=== PATIENT | female | born 1975 | race American Indian/Alaskan Native ===

== ENCOUNTER 2020-04-25 09:33 | Emergency (ER) | payer OTHER ==
--- NOTE | 2020-04-25 11:04 | Emergency Department Report ---
Blank Doc - Documentation Documentation: 45-year-old femle that presents with fatigue, decreased thrist and urinariation. Also has vaginal cyst. Denies any HX of diabetes. This initial assessment/diagnostic orders/clinical plan/treatment(s) is/are subject to change based on patient's health status, clinical progression and re- assessment by fellow clinical providers in the ED. Further treatment and workup at subsequent clinical providers discretion. Patient/guardians urged not to elope from the ED as their condition may be serious if not clinically assessed and managed. Initial orders include: 1- Patient sent to [facility] for further evaluation and treatment 2- labs 3- UA 4- pelvic exam
[2020-04-25 13:22] LABS: Hematocrit 51.9 % (30.3-42.9); Mean Corpuscular HGB Conc 33 % (30-34); Mean Corpuscular Volume 95 fl (79-97); Red Blood Count 5.44 M/mm3 (3.65-5.03); Red Cell Distribution Width 13.7 % (13.2-15.2)
[2020-04-25 14:38] LABS: Bilirubin,Urine NEG (Negative); Blood,Urine NEG (Negative); Color,Urine Straw (Yellow); Protein,Urine <15 mg/dL mg/dL (Negative); Urobilinogen,Urine < 2.0 mg/dL (<2.0); WBC,Urine < 1.0 /HPF (0.0-6.0)
[2020-04-25 14:54] LABS: Alanine Aminotransferase 32 units/L (7-56); Albumin 4.4 g/dL (3.9-5); BUN/Creatinine Ratio 14; Blood Urea Nitrogen 10 mg/dL (7-17); Calcium 9.9 mg/dL (8.4-10.2); Hemolysis Index 14
[2020-04-25] MEDS ORDERED: HYDROcodone/ACETAMINOPHEN 5-325 MG TAB PO ONE (14:58)
[2020-04-25] MEDS ORDERED: LIDOCAINE (1%) 10 MG/1 ML VIAL 20 ML MDV INFILTRATI ONE (14:58)
[2020-04-25] MEDS ORDERED: INSULIN REGULAR, HUMAN 100 UNITS/1 ML IV ONE (15:07)
[2020-04-25] MEDS ORDERED: SODIUM CHLORIDE 0.9% 1000 ML 1,000 ML IV ONE (15:07)
--- NOTE | 2020-04-25 15:25 | Emergency Department Report ---
ED General Adult HPI - General Chief complaint: Urogenital-Female Stated complaint: WT LOSS,FREQ URINATION/THIRTSTY Time Seen by Provider: 04/25/20 11:05 Source: patient Mode of arrival: Ambulatory Limitations: No Limitations - History of Present Illness Initial comments: 45-year-old female presents to ED with 2-week history of generalized weakness, increased urination, increased thirst. Patient also reports a vaginal cyst that has been present for approximately 1 week. Patient has no known medical problems. -: week(s) (2) Severity scale (0 -10): 6 Improves with: none Worsens with: none Associated Symptoms: denies: cough, fever/chills, nausea/vomiting, shortness of breath - Related Data Previous Rx's Medication Instructions Recorded Last Taken Type Cyclobenzaprine [Flexeril] 10 mg PO QHS PRN #10 tablet 09/04/18 Unknown Rx Ibuprofen [Motrin] 600 mg PO Q8H PRN #20 tablet 09/04/18 Unknown Rx Naproxen [Naprosyn] 500 mg PO BID #20 tablet 04/25/20 Unknown Rx Sulfamethoxazole/Trimethoprim 1 each PO BID 7 Days #14 tablet 04/25/20 Unknown Rx [Bactrim DS TAB] cephALEXin [Keflex] 500 mg PO Q12HR 7 Days #14 cap 04/25/20 Unknown Rx metFORMIN [Glucophage] 500 mg PO BID #60 tablet 04/25/20 Unknown Rx traMADoL [Ultram] 50 mg PO Q6HR PRN #7 tablet 04/25/20 Unknown Rx Allergies Allergy/AdvReac Type Severity Reaction Status Date / Time No Known Allergies Allergy Unverified 09/04/18 10:28 ED Review of Systems ROS: Stated complaint: WT LOSS,FREQ URINATION/THIRTSTY Other details as noted in HPI Comment: All other systems reviewed and negative Constitutional: denies: chills, fever Respiratory: denies: shortness of breath Endocrine: increased thirst, increased urine, unexplained weight loss Gastrointestinal: denies: nausea, vomiting Genitourinary: other (Reports vaginal cyst) ED Past Medical Hx - Past Medical History Previous Medical History?: Yes Hx Hypertension: Yes (02/2020) Additional medical history: endometerosis. anemia - Surgical History Past Surgical History?: No Additional Surgical History: . Uterine Fibroid Embolization - Social History Smoking Status: Never Smoker Substance Use Type: None - Medications Home Medications: Home Medications Medication Instructions Recorded Confirmed Last Taken Type Cyclobenzaprine [Flexeril] 10 mg PO QHS PRN #10 tablet 09/04/18 Unknown Rx Ibuprofen [Motrin] 600 mg PO Q8H PRN #20 tablet 09/04/18 Unknown Rx Naproxen [Naprosyn] 500 mg PO BID #20 tablet 04/25/20 Unknown Rx Sulfamethoxazole/Trimethoprim 1 each PO BID 7 Days #14 tablet 04/25/20 Unknown Rx [Bactrim DS TAB] cephALEXin [Keflex] 500 mg PO Q12HR 7 Days #14 cap 04/25/20 Unknown Rx metFORMIN [Glucophage] 500 mg PO BID #60 tablet 04/25/20 Unknown Rx traMADoL [Ultram] 50 mg PO Q6HR PRN #7 tablet 04/25/20 Unknown Rx ED Physical Exam - General Limitations: No Limitations General appearance: alert, in no apparent distress - Head Head exam: Present: atraumatic, normocephalic - Eye Eye exam: Present: normal appearance - ENT ENT exam: Present: mucous membranes moist - Neck Neck exam: Present: normal inspection - Respiratory Respiratory exam: Present: normal lung sounds bilaterally. Absent: respiratory distress - Cardiovascular Cardiovascular Exam: Present: regular rate, normal rhythm - GI/Abdominal GI/Abdominal exam: Present: soft. Absent: distended, tenderness - External exam: Present: other (Small abscess located near inferior left labia) - Extremities Exam Extremities exam: Present: normal inspection - Neurological Exam Neurological exam: Present: alert, oriented X3 - Psychiatric Psychiatric exam: Present: normal affect, normal mood - Skin Skin exam: Present: warm, dry, intact, normal color ED Course Vital Signs 04/25/20 04/25/20 10:11 14:47 Pulse Rate 105 H 93 H Respiratory 16 16 Rate Blood Pressure 120/81 118/74 [Right] O2 Sat by Pulse 98 99 Oximetry - I & D Vagina Type of Procedure: Simple Blade Size: 11 I & D Procedure: betadine prep, sterile drapes applied, gauze wick placed ED Medical Decision Making - Lab Data Result diagrams: 04/25/20 12:27 04/25/20 17:45 - Medical Decision Making 45-year-old female with new-onset diabetes. Initial glucose 454 with a bicarb of 19 and anion gap of 25. Patient given IV fluids and 6 units of insulin. Repeat BMP showed improvement in glucose, now 220, and anion gap, now 19. Andre castaneda also has Bartholin's cyst that was I&D'd. Patient will be given a prescription for metformin, Bactrim, Keflex. Patient advised to return in 48 hours for wound check. Patient also given outpatient follow-up with primary care and gynecology. Critical care attestation.: If time is entered above; I have spent that time in minutes in the direct care of this critically ill patient, excluding procedure time. ED Disposition Clinical Impression: Diabetes mellitus, new onset, Bartholin cyst Disposition: TO HOME OR SELFCARE Is pt being admited?: No Condition: Stable Instructions: Diabetes Mellitus Type 2 in Adults (ED), Bartholin Cyst (ED), Incision and Drainage (ED) Additional Instructions: Return to ED in 48 hrs for removal of gauze and wound check. Prescriptions: Sulfamethoxazole/Trimethoprim [Bactrim DS TAB] 1 each PO BID 7 Days #14 tablet metFORMIN [Glucophage] 500 mg PO BID #60 tablet cephALEXin [Keflex] 500 mg PO Q12HR 7 Days #14 cap Naproxen [Naprosyn] 500 mg PO BID #20 tablet traMADoL [Ultram] 50 mg PO Q6HR PRN #7 tablet PRN Reason: Pain Referrals: SHANI LANDAVERDEBIRD IN [facility] MD BARB [Primary Care Provider] - 3-5 Days PHI SILVA MD [Staff Physician] - 3-5 Days Time of Disposition: 19:15
[2020-04-25 19:03] LABS: BUN/Creatinine Ratio 13; Blood Urea Nitrogen 8 mg/dL (7-17); Calcium 8.8 mg/dL (8.4-10.2); Hemolysis Index 5
[2020-04-25 19:31] VITALS: BP 127/90
[2020-04-25 20:00] LABS: Basophils % (Manual) 0 % (0.0-1.8); Eosinophils % (Manual) 0 % (0.0-4.3); Platelet Estimate Consistent w Auto; RBC Morphology Normal; Total Cells Counted 100
[2020-04-25 20:17] LABS: Platelet Count 201 K/mm3 (140-440)
== END 2020-04-25 19:31 | disposition home or self-care (01) ==
LOC: ED 09:33
DX: E11.9 Type 2 diabetes mellitus without complications (principal); N75.0 Cyst of Bartholin's gland; I10 Essential (primary) hypertension; Z98.890 Other specified postprocedural states; Z79.1 Long term (current) use of non-steroidal anti-inflammatories (NSAID); Z79.899 Other long term (current) drug therapy
CPT/HCPCS: 36415; 56420; 80048; 80053; 81001; 82805; 82962; 84703; 85007; 85025; 96374; 99284; J7030; J1815

== ENCOUNTER 2020-04-27 08:51 | Emergency (ER) | payer OTHER ==
[2020-04-27 09:13] VITALS: BP 129/80
--- NOTE | 2020-04-27 13:07 | Emergency Department Report ---
Suture/Staple Removal - HPI Chief Complaint: Skin/Abscess/Foreign Body Stated Complaint: GAUZE REMOVAL Time Seen by Provider: 04/27/20 12:20 When Sutures or [place] Placed: 2 days Wound Location: perianal area ED Review of Systems ROS: Stated complaint: GAUZE REMOVAL Other details as noted in HPI Constitutional: denies: chills, fever Eyes: denies: eye pain, eye discharge, vision change ENT: denies: ear pain, throat pain Respiratory: denies: cough, shortness of breath, wheezing Cardiovascular: denies: chest pain, palpitations Endocrine: no symptoms reported Gastrointestinal: denies: abdominal pain, nausea, diarrhea Genitourinary: denies: urgency, dysuria, discharge Musculoskeletal: denies: back pain, joint swelling, arthralgia Skin: denies: rash, lesions Neurological: denies: headache, weakness, paresthesias Psychiatric: denies: anxiety, depression Hematological/Lymphatic: denies: easy bleeding, easy bruising ED Past Medical Hx - Past Medical History Hx Hypertension: Yes (02/2020) Additional medical history: endometerosis. anemia - Surgical History Additional Surgical History: . Uterine Fibroid Embolization - Social History Smoking Status: Current Every Day Smoker Substance Use Type: None - Medications Home Medications: Home Medications Medication Instructions Recorded Confirmed Last Taken Type Cyclobenzaprine [Flexeril] 10 mg PO QHS PRN #10 tablet 09/04/18 Unknown Rx Ibuprofen [Motrin] 600 mg PO Q8H PRN #20 tablet 09/04/18 Unknown Rx Naproxen [Naprosyn] 500 mg PO BID #20 tablet 04/25/20 Unknown Rx Sulfamethoxazole/Trimethoprim 1 each PO BID 7 Days #14 tablet 04/25/20 Unknown Rx [Bactrim DS TAB] cephALEXin [Keflex] 500 mg PO Q12HR 7 Days #14 cap 04/25/20 Unknown Rx metFORMIN [Glucophage] 500 mg PO BID #60 tablet 04/25/20 Unknown Rx traMADoL [Ultram] 50 mg PO Q6HR PRN #7 tablet 04/25/20 Unknown Rx Suture Removal Exam - Exam General: Vital signs noted. No distress. Alert and acting appropriately. Wound: No Pathologic Erythema, No Tenderness, No Drainage, No Pus, No Wound Dehiscence Other Systems: All other systems reviewed and are unremarkable. ED Course Vital Signs 04/27/20 09:10 Temperature 98.2 F Pulse Rate 95 H Respiratory 18 Rate Blood Pressure 129/80 O2 Sat by Pulse 99 Oximetry - Reevaluation(s) Reevaluation #1: 04/27/20 13:05 Patient is speaking in full sentences with no signs of distress noted. ED Recheck MDM - Medical Decision Making Kellen MENDEZ present as charprone during full assessement and packing removal. 1/ packing remoed and patient tolerated well. No swelling or pus or drainge noted. Patient was instructed to Follow-up with a primary care doctor in 3-5 days or if symptoms worsen and continue return to emergency room as soon as possible. At time of discharge, the patient does not seem toxic or ill in appearance. No acute signs of distress noted. Patient agrees to discharge treatment plan of care. No further questions noted by the patient. Critical care attestation.: If time is entered above; I have spent that time in minutes in the direct care of this critically ill patient, excluding procedure time. ED Disposition Clinical Impression: Abscess packing removal Disposition: [id number] TO HOME OR SELFCARE Is pt being admited?: No Does the pt Need Aspirin: No Condition: Stable Additional Instructions: Follow-up with a primary care doctor in 3-5 days or if symptoms worsen and continue return to the emergency department as soon as possible. Referrals: GIANA HUNTER MD [Staff Physician] - 3-5 Days PRIMARY CARE, [Primary Care Provider] - 3-5 Days Forms: Work/School Release Form(ED)
== END 2020-04-27 13:05 | disposition home or self-care (01) ==
LOC: ED 08:51
DX: S36.69XA Other injury of rectum, initial encounter (principal); F17.200 Nicotine dependence, unspecified, uncomplicated; Z48.00 Encounter for change or removal of nonsurgical wound dressing; Z98.890 Other specified postprocedural states; Z79.1 Long term (current) use of non-steroidal anti-inflammatories (NSAID); Z79.899 Other long term (current) drug therapy; X58.XXXA Exposure to other specified factors, initial encounter; Y93.89 Activity, other specified; Y92.89 Other specified places as the place of occurrence of the external cause; Y99.8 Other external cause status
CPT/HCPCS: 82962